=== PATIENT | male | born 1980 | race Caucasian/White ===

== ENCOUNTER 2018-03-31 10:43 | Emergency (ER) | payer MEDICAID ==
[~2018-03-31] VITALS: Ht 188 cm; Wt 90.9 kg
[2018-03-31 11:49] VITALS: BP 125/78
== END 2018-03-31 11:45 | disposition home or self-care (01) ==
LOC: EMS 10:45
DX: L03.116 Cellulitis of left lower limb (principal); M79.89 Other specified soft tissue disorders; F17.210 Nicotine dependence, cigarettes, uncomplicated
CPT/HCPCS: 99283